=== PATIENT | male | born 1965 | race Caucasian/White ===

== ENCOUNTER 2017-10-31 11:53 | Inpatient (IN) ==
[2017-10-31] MEDS ORDERED: NS 1,000 ML IV ONE (12:10)
[2017-10-31] MEDS: SALINE FLUSH 10ml SYRINGE IVF PRN (12:18)
--- NOTE | 2017-10-31 13:41 | History & Physical Report ---
History of Present Illness Date: 10/31/17 Chief complaint: Wellbutrin overdose HPI: Patient is a 52-year-old male who has been at [facility] for the past 2 weeks. He states he left today so he could take his Wellbutrin. Because he was feeling so depressed he crushed 4-5 of them (Wellbutrin XL 150) and snorted them (at around 9am). 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 He was in care home from May through Sep for a PFA violation and states when he got out, he started using meth again and checked himself into rehab b/c he didn't want to start using again. (Last meth use was .) He went through a divorce a year ago and states he lost his truck, home and job. His kids won't talk to him. He is homeless. Has been staying with friends here and there. He is very depressed. DOesn't care if he lives or dies. Has been in [facility] in the past. Review of Systems All systems PM: 10-point ROS was reviewed, no additional remarkable complaints except Review of systems: overwhelming depression Past Medical History Medical History Hypertension Depression Anxiety Insomnia Substance Use Disorder - methamphetamine Surgical History: R hand fx reduced under anesthesia Family History: Father - , [place], [place] Mother - living. Emphysema Sister - healthy Family History Updates: updated - Social History Smoking status: Never smoker Substance use type: methamphetamine (last use 10/13) Alcohol intake: former Alcohol intake frequency: former alcohol drinker (quit 5 years ago when he started using meth) Housing: homeless Current occupational status: unemployed, previously employed Social history: No PCP. Was getting Wellbutrin through [facility] Pt requests mom or sister be his financial services representative should he not be able to make his own decisions. Medications Home Medications Medication Instructions Recorded Confirmed Type Acetaminophen [Acetaminophen Extra 1,000 mg PO Q6H PRN 10/26/17 10/31/17 History Strength] Atenolol [Tenormin] 50 mg PO DAILY 10/26/17 10/31/17 History BuPROPion XL [Wellbutrin Xl] 150 mg PO QAM 10/26/17 10/31/17 History Haloperidol 1 mg PO BID 10/26/17 10/31/17 History Ibuprofen 600 mg PO Q8H PRN 10/26/17 10/31/17 History Trazodone [Desyrel] 50 mg PO HS 10/26/17 10/31/17 History Allergies Allergy/AdvReac Type Severity Reaction Status Date / Time No Known Allergies Allergy Verified 10/31/17 12:02 Exam Vital Signs: Temperature 97.6 F 10/31/17 12:02 Pulse Rate 75 10/31/17 12:16 Respiratory Rate 20 10/31/17 12:02 Blood Pressure 146/87 H 10/31/17 12:02 Pulse Oximetry 96 10/31/17 12:02 Height/Weight/BMI: Height 1.68 m Weight 73.2 kg - Constitutional Present: no acute distress, well nourished, well developed - Routine HEENT Exam Head: Present: normocephalic, atraumatic Eye: Present: EOMI, PERRL ENT: Present: mucous membranes moist, dentition normal - Routine Neck Exam Present: supple. Absent: lymphadenopathy, thyromegaly - Routine Respiratory Exam Present: CTA bilaterally. Absent: wheezes - Routine Cardiovascular Exam Present: RRR. Absent: murmur - Routine Abdominal Exam Present: soft, normoactive bowel sounds, non distended. Absent: tenderness - Routine Extremities Exam Present: no edema, normal capillary refill - Routine Skin Exam Present: dry, warm - Routine Neurological Exam Present: alert, oriented X3, CN II-XII intact - Routine Psychiatric Exam Present: cooperative, depressed. Absent: agitated, paranoid Results - Labs CBC & Chem 7: 10/31/17 12:19 10/31/17 12:19 Labs: UA neg UDS neg - ECG Data Tracing #2 NSR Rate 65 Assessment and Plan Assessment and Plan: Welbutrin OD -Admit to CCU for close monitoring -Seizure precautions - if seizures occur, diazepam IV 5-10mg q 5-10 min PRN -lorazepam 2-4mg q 30 min prn agitation/tachycardia -suicide precautions Depression/anxiety - psych consult Substance abuse -recommend IP rehab/mental health facility on discharge HTN -continue atenolol PPx SCD's Case discussed with Dr. Pavon. Case management will need to assist pt with finding PCP, etc. DVT Prophylaxis: SCD's Resuscitation Status: Full Code - Physician Narrative Narrative: S: Pt doing better. Denies n/v/d, f/c, cp or sob. Reports he tried to kill himself with the OD because of his personal situation. O: Cards: RRR without murmurs Luns: CTAB without wheezes A/P: Pt medically stable, his dose of 4-5 tabs is minimal so unlikely pt will have any side effects, EKG unremarkable, will monitor with symptomatic tx and ask psych for eval. Pt not allowed to leave AMA unless cleared by psych. Date: 10/31/17 Time: 1725 Hospital Course Summary Disclaimer: The visit summary below is not to be considered part of the above Progress Note. Hospital Course: 10/31/17 - hospital admission Welbutrin OD -Admit to CCU for close monitoring -Seizure precautions - if seizures occur, diazepam IV 5-10mg q 5-10 min PRN -lorazepam 2-4mg q 30 min prn agitation/tachycardia Depression/anxiety - psych consult Substance abuse -recommend IP rehab/mental health facility on discharge HTN -continue atenolol PPx SCD's Case discussed with Dr. Pavon. Case management will need to assist pt with finding PCP, etc. Addendum entered and electronically signed by ELAINA Garrett 10/31/17 14:42 : Case discussed with Dr. Toscano (Psych). She recommends holding wellbutrin, continuing Haldol and trazodone and having him f-u with [facility] or be evaluated by [facility]. Should he not be able to f-u with [facility], she would consider starting Lexapro 10mg or Zoloft 25-50mg.
--- NOTE | 2017-10-31 13:46 | XRay Report ---
INDICATION: overdose PROCEDURE: CHEST 2-VIEWS UPRIGHT (PA & LAT) Encounter: Initial COMPARISON: October 26, 2017 FINDINGS: The lungs are clear without evidence of focal abnormal airspace opacity. There is no pleural effusion or pneumothorax. The heart size, mediastinal contours and pulmonary vascularity are within normal limits. There is no significant skeletal abnormality. IMPRESSION: No acute cardiopulmonary disease. .
--- NOTE | 2017-10-31 13:53 | Emergency Department Report ---
Psych HPI - General Chief Complaint: Overdose Stated Complaint: Psych Eval Time Seen by Provider: 10/31/17 11:58 - History of Present Illness HPI Narrative: 52-year-old gentleman who became suicidal today and powdered and snorted 5 tablets of Wellbutrin 150 mg XL. He is at [facility] for methamphetamine addiction. He states that he has lost his family, his , his job, his stools and his truck also methamphetamine. He is tried to get away from it but has been unable. His last use was October 13 prior to admission to [facility] His children called the police to have him violated for a PFA border violation. He went to nursing home for approximately 6 months over this. He has been consistently down and depressed and still would like to . He has had previous psych admission 1 for suicidal ideation, but this is the first time he is actually attempted something. After starting the pills, he decided to come to the emergency department and asked for help. - Related Data Home Medications Medication Instructions Recorded Confirmed Acetaminophen [Acetaminophen Extra 1,000 mg PO Q6H PRN 10/26/17 10/31/17 Strength] Atenolol [Tenormin] 50 mg PO DAILY 10/26/17 10/31/17 BuPROPion XL [Wellbutrin Xl] 150 mg PO QAM 10/26/17 10/31/17 Haloperidol 1 mg PO BID 10/26/17 10/31/17 Ibuprofen 600 mg PO Q8H PRN 10/26/17 10/31/17 Trazodone [Desyrel] 50 mg PO HS 10/26/17 10/31/17 Previous Rx's Medication Instructions Recorded HydrOXYzine [Atarax] 25 mg PO BID #12 tab 10/26/17 Allergies Allergy/AdvReac Type Severity Reaction Status Date / Time No Known Allergies Allergy Verified 10/31/17 12:02 Review of Systems All systems: reviewed and negative except as stated PFSH Patient Stated Medical History Hypertension Yes Depression Yes Substance Use Disorder Yes: METH Surgical History: R hand fx reduced under anesthesia - Social History Smoking status: Never smoker Substance use type: methamphetamine Alcohol intake frequency: former alcohol drinker Physical Exam - Limitations Limitations: no limitations - General General appearance: alert, anxious, in distress - Normal Exams: Head:: Normocephalic without trauma Chest/Respirations:: Clear all figueroa, with good airflow, and symmetry bilaterally Cardiovascular:: Regular rate and rhythm, without murmur or gallop, Pulses 2+ all extremities, capillary refill, <2 seconds all extremities Abdomen:: Bowel sounds positive, soft, non-tender, non-distended, no hepatosplenomegaly, masses or bruits noted Neurological:: Patient is alert, and oriented, cranial nerves, motor/sensory/ cerebellar, exams w/o gross deficits, to observation - Psychiatric Psychiatric exam: Present: depressed, anxious, flat affect Course Vital Signs Pulse Rate 82 10/31/17 12:00 Respiratory Rate 37 H 10/31/17 12:00 Blood Pressure 141/83 H 10/31/17 12:00 Pulse Oximetry 94 10/31/17 12:00 Temperature 97.6 F 10/31/17 12:02 Pulse Rate 68 10/31/17 13:00 Respiratory Rate 23 10/31/17 13:00 Blood Pressure 122/77 10/31/17 13:00 Pulse Oximetry 98 10/31/17 13:00 Psych - MDM Narrative Medical decision making narrative: Poison control was contacted, patient is at increased risk of seizure due to the elevated dose of Wellbutrin. Especially due to having been concentrated and snorted. He is voluntary for psychiatric admission, and will be admitted overnight for observation due to the potential for overdose. Labs returned showing white count 12,000, CMP normal, urine drug screen negative with Tylenol and aspirin levels normal. Alcohol level is negative. Chest x-ray is negative. EKG shows no acute changes. Patient was observed overnight with seizure precautions, psychiatric issues to be followed up in the morning. Hospitalist is admitting the patient. - Differential Diagnosis Likely: acute psychosis, suicidal ideation, bipolar disorder, depression, drug- induced psychotic disorder, acute anxiety - Medical Records Attestation: I reviewed the patient's medical records. - Lab Data Attestation: I reviewed the patient's lab results. Result diagrams: 10/31/17 12:19 10/31/17 12:19 Lab Results 10/31/17 10/31/17 10/31/17 Range/Units 12:19 12:19 12:20 WBC 12.0 H (4.5-11.0) T/MM3 RBC 5.06 (4.50-5.90) M/MM3 Hgb 15.2 (13.5-17.5) GM/DL Hct 45.3 (41-53) % MCV 89.5 (80-100) UM3 MCH 30.0 (26-34) UUG MCHC 33.6 (31-37) GM/DL RDW Std Deviation 41.6 (36.9-50.2) FL Plt Count 358 (130-400) T/MM3 MPV 9.3 L (9.4-12.4) UM3 Immature Gran % (Auto) 0.2 (0.0-0.5) % Neut % (Auto) 75.8 H (33-66) % Lymph % (Auto) 18.4 L (23-45) % [place] % (Auto) 4.4 (0-9.0) % Eos % (Auto) 0.7 (0-4) % Baso % (Auto) 0.5 (0-2) % Neut # (Auto) 9.1 H (1.8-7.7) T/MM3 Lymph # (Auto) 2.2 (1-4.8) T/MM3 [place] # (Auto) 0.5 (0-0.8) T/MM3 Eos # (Auto) 0.1 (0-0.5) T/MM3 Baso # (Auto) 0.1 (0-0.2) T/MM3 Abs Immat Gran (auto) 0.02 (0.00-0.03) T/MM3 Turbidity < 20 (0-20) Sodium 141 (134-144) MEQ/L Potassium 4.1 (3.6-5) MEQ/L Chloride 105 (98-107) MEQ/L Carbon Dioxide 25 (22-30) MEQ/L Anion Gap 11 (5-15) MEQ/L BUN 12.0 (9-20) MG/DL Creatinine 1.0 (0.8-1.5) MG/DL GFR Calculation 79 BUN/Creatinine Ratio 12 (6-26) RATIO Glucose 99 (75-110) MG/DL Calculated Osmolality 271 (261-280) MOSM/KG Calcium 9.0 (8.4-10.2) MG/DL Total Bilirubin 1.00 (0.20-1.30) MG/DL Icterus Index < 2 (0-7) AST 22 (17-59) U/L ALT 29 (21-72) U/L Alkaline Phosphatase 56 (38-126) U/L Total Protein 7.6 (6.3-8.2) G/DL Albumin 4.6 (3.5-5.0) G/DL Globulin 3.0 (2.4-3.6) G/DL Albumin/Globulin Ratio 1.5 (1.1-2.2) RATIO Specimen Hemolysis < 15 (0-25) Ur Collection Type Urine, clean catch Urine Color Yellow (YELLOW) Urine Clarity Clear Urine pH 5.5 (5.0-8.0) Ur Specific [place] 1.015 (1.015-1.025) Urine Protein Negative (NEGATIVE) Urine Glucose (UA) Negative (NEGATIVE) Urine Ketones Negative (NEGATIVE) Urine Occult Blood Negative (NEGATIVE) Urine Nitrate Negative (NEGATIVE) Urine Bilirubin Negative (NEGATIVE) Urine Urobilinogen 0.2 (NORMAL) EU/DL Ur Leukocyte Esterase Negative (NEGATIVE) Urinalysis Comment Microscopic not ind. Salicylates < 1.0 L (2-20) MG/DL Urine Opiates Screen ng/mL Ur Oxycodone Screen ng/mL Urine Methadone Screen ng/mL Ur Propoxyphene Screen ng/mL Acetaminophen < 10 L (10-30) UG/ML Ur Barbiturates Screen ng/mL U Tricyclic Antidepress ng/mL Ur Phencyclidine Scrn ng/mL Ur Amphetamines Screen ng/mL U Methamphetamines Scrn ng/mL U Benzodiazepines Scrn ng/mL Urine Cocaine Screen ng/mL U Cannabinoids Screen ng/mL Alcohol, Quantitative <10 (<10) MG/DL 10/31/ Range/Units 12:20 WBC (4.5-11.0) T/MM3 RBC (4.50-5.90) M/MM3 Hgb (13.5-17.5) GM/DL Hct (41-53) % MCV (80-100) UM3 MCH (26-34) UUG MCHC (31-37) GM/DL RDW Std Deviation (36.9-50.2) FL Plt Count (130-400) T/MM3 MPV (9.4-12.4) UM3 Immature Gran % (Auto) (0.0-0.5) % Neut % (Auto) (33-66) % Lymph % (Auto) (23-45) % [place] % (Auto) (0-9.0) % Eos % (Auto) (0-4) % Baso % (Auto) (0-2) % Neut # (Auto) (1.8-7.7) T/MM3 Lymph # (Auto) (1-4.8) T/MM3 [place] # (Auto) (0-0.8) T/MM3 Eos # (Auto) (0-0.5) T/MM3 Baso # (Auto) (0-0.2) T/MM3 Abs Immat Gran (auto) (0.00-0.03) T/MM3 Turbidity (0-20) Sodium (134-144) MEQ/L Potassium (3.6-5) MEQ/L Chloride (98-107) MEQ/L Carbon Dioxide (22-30) MEQ/L Anion Gap (5-15) MEQ/L BUN (9-20) MG/DL Creatinine (0.8-1.5) MG/DL GFR Calculation BUN/Creatinine Ratio (6-26) RATIO Glucose (75-110) MG/DL Calculated Osmolality (261-280) MOSM/KG Calcium (8.4-10.2) MG/DL Total Bilirubin (0.20-1.30) MG/DL Icterus Index (0-7) AST (17-59) U/L ALT (21-72) U/L Alkaline Phosphatase (38-126) U/L Total Protein (6.3-8.2) G/DL Albumin (3.5-5.0) G/DL Globulin (2.4-3.6) G/DL Albumin/Globulin Ratio (1.1-2.2) RATIO Specimen Hemolysis (0-25) Ur Collection Type Urine Color (YELLOW) Urine Clarity Urine pH (5.0-8.0) Ur Specific [place] (1.015-1.025) Urine Protein (NEGATIVE) Urine Glucose (UA) (NEGATIVE) Urine Ketones (NEGATIVE) Urine Occult Blood (NEGATIVE) Urine Nitrate (NEGATIVE) Urine Bilirubin (NEGATIVE) Urine Urobilinogen (NORMAL) EU/DL Ur Leukocyte Esterase (NEGATIVE) Urinalysis Comment Salicylates (2-20) MG/DL Urine Opiates Screen Negative ng/mL Ur Oxycodone Screen Negative ng/mL Urine Methadone Screen Negative ng/mL Ur Propoxyphene Screen Negative ng/mL Acetaminophen (10-30) UG/ML Ur Barbiturates Screen Negative ng/mL U Tricyclic Antidepress Negative ng/mL Ur Phencyclidine Scrn Negative ng/mL Ur Amphetamines Screen Negative ng/mL U Methamphetamines Scrn Negative ng/mL U Benzodiazepines Scrn Negative ng/mL Urine Cocaine Screen Negative ng/mL U Cannabinoids Screen Negative ng/mL Alcohol, Quantitative (<10) MG/DL - Radiology Data Attestation: I reviewed the patient's radiology results. Disposition Clinical Impression: Drug overdose, Suicide attempt Disposition: To [facility] Condition: Stable Time of Disposition: 13:59 - Seen By: physician
[2017-10-31] MEDS ORDERED: NS 1,000 ML IV SCH (14:00)
[2017-10-31] MEDS ORDERED: ACETAMINOPHEN 500 MG TABLET PO PRN (14:14)
[2017-10-31 14:36] VITALS: BMI 25.2
[2017-10-31] MEDS: TRAZODONE 50 MG TABLET PO SCH (20:32)
[2017-10-31] MEDS: HALOPERIDOL 1 MG TABLET PO SCH (20:32)
[2017-11-01] MEDS: HALOPERIDOL 1 MG TABLET PO SCH ×2 (09:43→20:48)
[2017-11-01] MEDS: ATENOLOL 50 MG TABLET PO SCH (09:43)
--- NOTE | 2017-11-01 14:26 | Progress Note ---
- Date 11/01/17 Subjective: Mr. Abdullahi was resting comfortably when seen. He reported that he slept a little overnight indicating that the various noises in the ICU and alarms interfered with resting. He denied dyspnea, lightheadedness, nausea, or pain. He summarized his status as "I'm here"; he did not feel that he was improved and indicated he needed further help "inside"to keep him from completing the job he started yesterday. Earlier today he told nursing that he was sorry he woke up and wanted to know when he could leave the hospital so he could finish when he started yesterday referring to his suicide attempt. Objective Vital signs: Temperature 98.5 F 11/01/17 04:00 Pulse Rate 58 L 11/01/17 11:48 Respiratory Rate 16 11/01/17 11:48 Blood Pressure 129/80 11/01/17 11:48 Pulse Oximetry 94 - RA 11/01/17 11:48 NAD, alert, cooperative Flat affect, poor eye contact EOMI, conjunctiva clear, neck supple Respirations nonlabored, good airflow, breath sounds clear Regular rhythm, S1-S2 Abdomen soft, nontender, bowel sounds present Extremities without edema Rhythm: Normal Sinus Rhythm Results - Labs CBC & Chem 7: 11/01/17 04:44 11/01/17 04:44 Labs: UDS negative Assessment and Plan Assessment and Plan: Welbutrin OD -Admit to CCU for close monitoring; remains actively suicidal. -Seizure precautions - if seizures occur, diazepam IV 5-10mg q 5-10 min PRN -lorazepam 1-4mg q 30 min prn agitation/tachycardia -suicide precautions -Nikki Huff has recommended inpatient care at [facility] when bed available ; anticipate 1-2 day wait at present Depression/anxiety -psych consult; as above -on haloperidol and trazodone chronically Substance abuse -recommend IP rehab/mental health facility on discharge; previously at [facility]. HTN -continue atenolol, blood pressure stable Leukocytosis -POA, resolved PPx SCD's Discussed with nursing and case management; chest x-ray/EKG-QTC reviewed by myself. DVT Prophylaxis: SCD's Resuscitation Status: Full Code - Physician Narrative Narrative: Date: 11/01/17 Time: 1423 Hospital Course Summary Disclaimer: The visit summary below is not to be considered part of the above Progress Note. Hospital Course: 10/31/17 - hospital admission Welbutrin OD -Admit to CCU for close monitoring -Seizure precautions - if seizures occur, diazepam IV 5-10mg q 5-10 min PRN -lorazepam 2-4mg q 30 min prn agitation/tachycardia Depression/anxiety - psych consult Substance abuse -recommend IP rehab/mental health facility on discharge HTN -continue atenolol PPx SCD's Case discussed with Dr. Pavon. Case management will need to assist pt with finding PCP, etc.
[2017-11-01] MEDS: SALINE FLUSH 10ml SYRINGE IVF PRN (15:54)
[2017-11-01] MEDS: TRAZODONE 50 MG TABLET PO SCH (20:48)
[2017-11-02] MEDS: SALINE FLUSH 10ml SYRINGE IVF PRN ×2 (07:55→21:25)
[2017-11-02] MEDS: HALOPERIDOL 1 MG TABLET PO SCH ×2 (09:59→21:18)
[2017-11-02] MEDS: BuPROPion XL 150mg (24HR) TABLET PO SCH (14:21)
--- NOTE | 2017-11-02 15:01 | Progress Note ---
- Date 11/02/17 Subjective: Mr. Abdullahi reports he's been anxious off and on and that lorazepam helps with symptom control. Otherwise he's had no concerns and he denied dyspnea, palpitations, nausea, issue area, lightheadedness, headache, or pain. He had one loose stool this morning but has not had recurrent loose stools or diarrhea. He reports that he feels is gotten nowhere to go following divorce about a year ago which resulted in minimal contact with his 2 adult children. Nursing reported continued verbalization of desire to kill himself overnight and minimal interaction with staff. Objective Vital signs: Temperature 97.2 F 11/02/17 12:49 Pulse Rate 67 11/02/17 12:49 Respiratory Rate 20 11/02/17 12:49 Blood Pressure 105/63 11/02/17 12:49 Pulse Oximetry 95 - RA 11/02/17 12:49 NAD, more interactive today than he was yesterday, flat affect EOMI, conjunctiva clear, sclera anicteric, oropharynx clear Respirations nonlabored, good airflow, breath sounds clear bilaterally Regular rhythm, S1-S2 Abdomen soft, nontender, bowel sounds present/normal Extremities without edema Rhythm: Normal Sinus Rhythm Height/Weight/BMI: Weight 72.7 kg Results - Labs CBC & Chem 7: 11/01/17 04:44 11/01/17 04:44 Assessment and Plan (1) Drug overdose Current visit: Yes Status: Acute (2) Suicide attempt Current visit: Yes Status: Acute Assessment and Plan: Impression: Welbutrin OD Depression/anxiety Substance abuse HTN Leukocytosis Plan: Medically stable; blood pressure low normal with heart rates in the 50s-60s. Atenolol dose decreased to 25 mg daily from 50 to address both blood pressure and heart rate although asymptomatic. Patient describes increased anxiety today and asked if Wellbutrin could be resumed pending further psychiatric evaluation when bed available at [facility] or alternate facility. Case management reports no psychiatric beds available at present. QT interval on telemetry is well within normal and patient is 48 hours outside of ingestion. Resume Wellbutrin at 150 mg daily. Presenting leukocytosis resolved on repeat labs yesterday. Increased activity in the room recommended. DVT Prophylaxis: SCD's Resuscitation Status: Full Code - Physician Narrative Narrative: Date: 11/02/17 Time: 1458 Hospital Course Summary Disclaimer: The visit summary below is not to be considered part of the above Progress Note. Hospital Course: 10/31/17 - hospital admission Welbutrin OD -Admit to CCU for close monitoring -Seizure precautions - if seizures occur, diazepam IV 5-10mg q 5-10 min PRN -lorazepam 2-4mg q 30 min prn agitation/tachycardia Depression/anxiety - psych consult Substance abuse -recommend IP rehab/mental health facility on discharge HTN -continue atenolol PPx SCD's Case discussed with Dr. Pavon. Case management will need to assist pt with finding PCP, etc. 11/01/17 Remains suicidal, Elizabeth Huff evaluation recommended inpatient psychiatric care at [facility]-no bed available at present and anticipate several-day wait. Leukocytosis resolved. 11/02/17 Medically stable, remains suicidal with increased anxiety and described increased depressive symptoms to nursing. Wellbutrin resumed at home dose pending transfer to inpatient psychiatry when bed available. Both blood pressure and heart rate are borderline low, atenolol dose decreased to 25 mg daily.
[2017-11-02] MEDS: LORazepam 1 MG TABLET PO PRN (19:14)
[2017-11-02] MEDS: TRAZODONE 50 MG TABLET PO SCH (21:18)
[2017-11-03] MEDS: BuPROPion XL 150mg (24HR) TABLET PO SCH (08:48)
[2017-11-03] MEDS: LORazepam 1 MG TABLET PO PRN ×2 (08:48→15:20)
[2017-11-03] MEDS: HALOPERIDOL 1 MG TABLET PO SCH ×2 (09:39→20:42)
[2017-11-03] MEDS: ATENOLOL 25 MG TABLET PO SCH (15:20)
--- NOTE | 2017-11-03 16:57 | Progress Note ---
- Date 11/03/17 Subjective: Guerrero was resting in bed when seen. He denied dyspnea or nausea and reported that he's had no further diarrhea. He reports that he still depressed and nursing notes indicate he asked his nurse if she thought suicide was crazy overnight. He reports that he is sleeping and eating okay but not great. Objective Vital signs: Temperature 97.4 F 11/03/17 16:29 Pulse Rate 91 11/03/17 13:00 Respiratory Rate 18 11/03/17 13:00 Blood Pressure 123/82 11/03/17 11:34 Pulse Oximetry 92 -RA 11/03/17 13:00 NAD, alert, flat affect Respirations nonlabored, good airflow, breath sounds clear Regular rhythm, S1-S2 Abdomen soft, nontender Extremities without edema Rhythm: Normal Sinus Rhythm Height/Weight/BMI: Weight 74.3 kg Results - Labs CBC & Chem 7: 11/01/17 04:44 11/01/17 04:44 Assessment and Plan (1) Drug overdose Current visit: Yes Status: Acute (2) Suicide attempt Current visit: Yes Status: Acute Assessment and Plan: Impression: Welbutrin OD Depression/anxiety Substance abuse HTN, chronic Bradycardia Leukocytosis-POA, resolved Plan: Medically stable; systolic blood pressure was low this morning but normalized this afternoon permitting administration of atenolol at reduced dose. Heart rate has normalized. Depressive symptoms unchanged-patient continues to ask when he can transfer to inpatient psychiatry for further care; no updated on bed availability although was initially advised he would be after the 1st at all facilities. Ambulating in the unit without assistance. DVT Prophylaxis: SCD's Resuscitation Status: Full Code - Physician Narrative Narrative: Date: 11/03/17 Time: 1651 Hospital Course Summary Disclaimer: The visit summary below is not to be considered part of the above Progress Note. Hospital Course: 10/31/17 - hospital admission Welbutrin OD -Admit to CCU for close monitoring -Seizure precautions - if seizures occur, diazepam IV 5-10mg q 5-10 min PRN -lorazepam 2-4mg q 30 min prn agitation/tachycardia Depression/anxiety - psych consult Substance abuse -recommend IP rehab/mental health facility on discharge HTN -continue atenolol PPx SCD's Case discussed with Dr. Pavon. Case management will need to assist pt with finding PCP, etc. 11/01/17 Remains suicidal, [facility] evaluation recommended inpatient psychiatric care at [facility]-no bed available at present and anticipate several-day wait. Leukocytosis resolved. 11/02/17 Medically stable, remains suicidal with increased anxiety and described increased depressive symptoms to nursing. Wellbutrin resumed at home dose pending transfer to inpatient psychiatry when bed available. Both blood pressure and heart rate are borderline low, atenolol dose decreased to 25 mg daily. 11/03/17 Medically stable, awaiting transfer to inpatient psychiatry.
[2017-11-03] MEDS: SALINE FLUSH 10ml SYRINGE IVF PRN (19:34)
[2017-11-03] MEDS: TRAZODONE 50 MG TABLET PO SCH (20:42)
[2017-11-04] MEDS: BuPROPion XL 150mg (24HR) TABLET PO SCH (08:39)
[2017-11-04] MEDS: SALINE FLUSH 10ml SYRINGE IVF PRN ×2 (08:39→13:38)
[2017-11-04] MEDS: HALOPERIDOL 1 MG TABLET PO SCH ×2 (08:40→22:52)
[2017-11-04] MEDS: ATENOLOL 25 MG TABLET PO SCH (08:43)
[2017-11-04] MEDS: PANTOPRAZOLE 40 MG INJECTION IVP SCH ×2 (08:43→08:53)
[2017-11-04] MEDS: LORazepam 1 MG TABLET PO PRN (11:44)
--- NOTE | 2017-11-04 15:49 | Progress Note ---
- Date 11/04/17 Subjective: Guerrero reports no change and ongoing depression and thoughts of dying/harming himself. He denied dyspnea or diarrhea reports he's had some nausea this morning probably just anxiety. No lightheadedness when he is ambulating in the room. Objective Vital signs: Temperature 98.2 F 11/04/17 13:14 Pulse Rate 66 11/04/17 13:14 Respiratory Rate 10 11/04/17 13:14 Blood Pressure 107/61 11/04/17 13:14 Pulse Oximetry 96 11/04/17 13:14 Flat affect, NAD, alert, fluent speech Nonlabored, good airflow, breath sounds clear anteriorly Regular rhythm, S1 and S2 Abdomen soft, nontender Rhythm: Normal Sinus Rhythm Height/Weight/BMI: Weight 72 kg Results - Labs CBC & Chem 7: 11/01/17 04:44 11/01/17 04:44 Assessment and Plan (1) Drug overdose Current visit: Yes Status: Acute (2) Suicide attempt Current visit: Yes Status: Acute Assessment and Plan: Impression: Welbutrin OD Depression/anxiety Substance abuse HTN, chronic Bradycardia Leukocytosis-POA, resolved Plan: Medically stable; blood pressure/heart rate stable on reduced dose of atenolol. Depressive symptoms unchanged-patient continues to ask when he can transfer to inpatient psychiatry for further care; discussed with case management-no psychiatric beds available today. Patient aware. - Physician Narrative Narrative: Date: 11/04/17 Time: 1546 Hospital Course Summary Disclaimer: The visit summary below is not to be considered part of the above Progress Note. Hospital Course: 10/31/17 - hospital admission Welbutrin OD -Admit to CCU for close monitoring -Seizure precautions - if seizures occur, diazepam IV 5-10mg q 5-10 min PRN -lorazepam 2-4mg q 30 min prn agitation/tachycardia Depression/anxiety - psych consult Substance abuse -recommend IP rehab/mental health facility on discharge HTN -continue atenolol PPx SCD's Case discussed with Dr. Pavon. Case management will need to assist pt with finding PCP, etc. 11/01/17 Remains suicidal, Elizabeth Huff evaluation recommended inpatient psychiatric care at [facility]-no bed available at present and anticipate several-day wait. Leukocytosis resolved. 11/02/17 Medically stable, remains suicidal with increased anxiety and described increased depressive symptoms to nursing. Wellbutrin resumed at home dose pending transfer to inpatient psychiatry when bed available. Both blood pressure and heart rate are borderline low, atenolol dose decreased to 25 mg daily. 11/03/17 Medically stable, awaiting transfer to inpatient psychiatry. 11/04/17 Medically stable; persistent depression/suicidal thoughts.
[2017-11-04] MEDS: TRAZODONE 50 MG TABLET PO SCH (22:53)
[2017-11-05] MEDS: LORazepam 1 MG TABLET PO PRN ×2 (04:54→11:04)
[2017-11-05] MEDS: ATENOLOL 50 MG TABLET PO SCH (07:25)
[2017-11-05] MEDS: HALOPERIDOL 1 MG TABLET PO SCH (09:46)
[2017-11-05] MEDS: BuPROPion XL 150mg (24HR) TABLET PO SCH (09:46)
[2017-11-05] MEDS: ATENOLOL 25 MG TABLET PO SCH (10:05)
--- NOTE | 2017-11-05 12:29 | Progress Note ---
- Date 11/05/17 Subjective: Guerrero reports no concerns overnight except for worsening depression. He expressed multiple frustrations regarding his family's abandonment of him and sensitivities has sabotaged his ability to obtain employment. He reported frustration every morning when he awakens and that he simply wouldn't wake up. He indicated that if he had the opportunity to take an overdose again he would do so but that he knows he needs to take more pills next time. He continues to express desire that he can get some help with his depression. He voiced concerns regarding court appearances and [id number] child support. Objective Vital signs: Temperature 98.6 F 11/05/17 09:46 Pulse Rate 59 L 11/05/17 11:19 Respiratory Rate 16 11/05/17 11:19 Blood Pressure 110/76 11/05/17 09:46 Pulse Oximetry 95 11/05/17 11:19 NAD, alert, flat affect, angrier today than prior days Respirations nonlabored Ambulating without difficulty Height/Weight/BMI: Weight 71 kg Results - Labs CBC & Chem 7: 11/01/17 04:44 11/01/17 04:44 Assessment and Plan (1) Drug overdose Current visit: Yes Status: Acute (2) Suicide attempt Current visit: Yes Status: Acute Assessment and Plan: Impression: Welbutrin OD Depression/anxiety Substance abuse HTN, chronic Bradycardia Leukocytosis-POA, resolved Plan: Medically stable; blood pressure/heart rate stable on reduced dose of atenolol. Depressive symptoms persist-patient more focal today. Discussed with case management. Just as I was completing today's note I was contacted by Dr. Gooden at [facility] who is accepted patient for inpatient care at that facility. Transfer to be coordinated by case management. - Physician Narrative Narrative: Date: 11/05/17 Time: 1211 Hospital Course Summary Disclaimer: The visit summary below is not to be considered part of the above Progress Note. Hospital Course: 10/31/17 - hospital admission Welbutrin OD -Admit to CCU for close monitoring -Seizure precautions - if seizures occur, diazepam IV 5-10mg q 5-10 min PRN -lorazepam 2-4mg q 30 min prn agitation/tachycardia Depression/anxiety - psych consult Substance abuse -recommend IP rehab/mental health facility on discharge HTN -continue atenolol PPx SCD's Case discussed with Dr. Pavon. Case management will need to assist pt with finding PCP, etc. 11/01/17 Remains suicidal, Elizabeth Huff evaluation recommended inpatient psychiatric care at [facility]-no bed available at present and anticipate several-day wait. Leukocytosis resolved. 11/02/17 Medically stable, remains suicidal with increased anxiety and described increased depressive symptoms to nursing. Wellbutrin resumed at home dose pending transfer to inpatient psychiatry when bed available. Both blood pressure and heart rate are borderline low, atenolol dose decreased to 25 mg daily. 11/03/17 Medically stable, awaiting transfer to inpatient psychiatry. 11/04/17 Medically stable; persistent depression/suicidal thoughts. 11/05/17 12:38 Accepted for transfer to [facility].
--- NOTE | 2017-11-05 13:36 | Discharge Summary ---
Discharge Information Date of admission: 11/01/17 12:00 Anticipated date of discharge: 11/05/17 Attending Physician: Ruth Saba MD - Discharge Diagnosis (1) Drug overdose Status: Acute (2) Suicide attempt Status: Acute Welbutrin OD Suicide attempt Depression/anxiety Substance abuse HTN, chronic Bradycardia-resolved Leukocytosis-POA, resolved - Laboratory Labs: On admission white count was 12.0, hemoglobin 15.2, platelet count 358K. CMP was entirely normal and urine drug screen negative. UA was unremarkable. Repeat white count on 11/01 was 8.8 and remainder of CBC and BMP were normal. - Radiology Radiology: Chest x-ray on admission was negative for cardiopulmonary disease. History of Present Illness HPI: Patient is a 52-year-old male who has been at [facility] for the past 2 weeks. He states he left today so he could take his Wellbutrin. Because he was feeling so depressed he crushed 4-5 of them (Wellbutrin XL 150) and snorted them (at around 9am). 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 He was in penitentiary from May through Sep for a PFA violation and states when he got out, he started using meth again and checked himself into rehab b/c he didn't want to start using again. (Last meth use was 10/13.) He went through a divorce a year ago and states he lost his truck, home and job. His kids won' t talk to him. He is homeless. Has been staying with friends here and there. He is very depressed. Doesn't care if he lives or dies. Has been in [facility] in the past and has been seen at [facility] in [place]. Hospital Course This is a general summary of the patient's hospital course. For more details refer to the complete medical record. Hospital course: 10/31/17 - hospital admission Welbutrin OD -Admit to CCU for close monitoring -Seizure precautions - if seizures occur, diazepam IV 5-10mg q 5-10 min PRN -lorazepam 2-4mg q 30 min prn agitation/tachycardia Depression/anxiety - psych consult Substance abuse -recommend IP rehab/mental health facility on discharge HTN -continue atenolol PPx SCD's Case discussed with Dr. Pavon. Case management will need to assist pt with finding PCP, etc. 11/01/17 Remains suicidal, Elizabeth Huff evaluation recommended inpatient psychiatric care at [facility]-no bed available at present and anticipate several-day wait. Leukocytosis resolved. 11/02/17 Medically stable, remains suicidal with increased anxiety and described increased depressive symptoms to nursing. Wellbutrin resumed at home dose pending transfer to inpatient psychiatry when bed available. Both blood pressure and heart rate are borderline low, atenolol dose decreased to 25 mg daily. 11/03/17 Medically stable, awaiting transfer to inpatient psychiatry. 11/04/17 Medically stable; persistent depression/suicidal thoughts. 11/05/17 More verbal about depression/frustrations with families abandonment of him and inability to maintain employment than he has been prior days. Describes worsening depressive symptoms and intent to overdose again if he has the opportunity to do so unless he gets further help. Blood pressure/heart rate adam on reduced dose of atenolol. No new concerns. Accepted for transfer to [facility] this afternoon. Time spent with patient: discharge greater than 30 minutes Discharge Plan - Med Rec/Dispo Prescriptions: New Atenolol [Tenormin] 25 mg PO DAILY tab LORazepam [Ativan] 1 mg PO TID PRN tab PRN Reason: Anxiety Continue Haloperidol 1 mg PO BID Trazodone [Desyrel] 50 mg PO HS Ibuprofen 600 mg PO Q8H PRN PRN Reason: Pain Acetaminophen [Acetaminophen Extra Strength] 1,000 mg PO Q6H PRN PRN Reason: Pain BuPROPion XL [Wellbutrin Xl] 150 mg PO QAM HydrOXYzine [Atarax] 25 mg PO BID #12 tab Discontinued Atenolol [Tenormin] 50 mg PO DAILY - Disposition [facility] To Psych Hosp/Unit - Dismissal Complete Discharge Instructions are:: Complete
[2017-11-05 13:49] VITALS: BP 112/82; PULSE 68; RESP 14; TEMP 97.8; O2SAT 97
== END 2017-11-05 16:10 | DRG 918 ==
LOC: CCU 11:53 → ED 11:53 → SUATTDRO 13:26 → CCU 13:50 → SUATTDRO 11-01 12:00
PROVIDERS: ADMIT Internal Medicine; ATTEND Hospitalist